=== PATIENT | male | born 1965 | race American Indian/Alaskan Native ===

== ENCOUNTER → 2023-08-30 | Outpatient (CLI) | payer OTHER ==
[~2023-08-30] MED LIST: LIDOCAINE 1% MDV 20ML VIAL As Ordered ONE
[2023-08-30 09:32] VITALS: TEMP 97.9
[2023-08-30 10:14] VITALS: BP 148/75; O2SAT 96
== END ==
LOC: M IRPRO 09:16
PROVIDERS: ATTEND Otolaryngology
DX: R22.1 Localized swelling, mass and lump, neck (principal)